=== PATIENT | female | born 1960 | race Caucasian/White ===

== ENCOUNTER 2017-07-10 19:57 | Emergency (ER) | payer BC ==
[2017-07-10 20:06] VITALS: BP 140/94
--- NOTE | 2017-07-10 20:14 | UC ---
Respiratory Complaint HPI - HPI Summary HPI Summary: Pt presents with dry cough for the last 3 days. She tells me that she gets bronchitis every year around this time, but this year she is worried because she is leaving for a cruise in a few days and does not want to be sick. She took robitussin, but this gave her diarrhea. Denies fever, chills, SOB, chest pain, abdominal pain, n/v/d/c. 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 [place] URETER STRETCHED- . BREAST REDUCTION - Family History Known Family History: Positive: Hypertension - Social History Occupation: Employed Full-time Lives: With Family Alcohol Use: Occasionally Alcohol Amount: 1-2 DRINKS PER WEEK Substance Use Type: None Smoking Status (MU): Never Smoked Tobacco Have You Smoked in the Last Year: No Review of Systems Constitutional: Negative Skin: Negative Eyes: Negative ENT: Negative Respiratory: Cough Cardiovascular: Negative Gastrointestinal: Negative Musculoskeletal: Negative Neurological: Negative Psychological: Negative All Other Systems Reviewed And Are Negative: Yes Physical Exam Triage Information Reviewed: Yes Appearance: Well-Appearing, No Pain Distress, Well-Nourished Vital Signs: Initial Vital Signs Temp 99.2 F 07/10/17 20:02 Pulse 97 07/10/17 20:02 Resp 16 07/10/17 20:02 BP 140/94 07/10/17 20:02 Pulse Ox 97 07/10/17 20:02 Vital Signs Reviewed: Yes Eyes: Positive: Conjunctiva Clear. Negative: Conjunctiva Inflamed, Discharge ENT: Positive: Hearing grossly normal, Pharynx normal, TMs normal, Uvula midline. Negative: Pharyngeal erythema, Nasal congestion, Nasal drainage, TM bulging, TM dull, TM red, Tonsillar swelling, Tonsillar exudate, Hoarse voice, Sinus tenderness Neck: Positive: Supple, Nontender, No Lymphadenopathy Respiratory: Positive: Chest non-tender, Lungs clear, Normal breath sounds, No respiratory distress, No accessory muscle use Cardiovascular: Positive: RRR, No Murmur, Pulses Normal Neurological: Positive: Alert Psychological: Positive: Age Appropriate Behavior Skin: Negative: rashes UC Diagnostic Evaluation - Laboratory O2 Sat by Pulse Oximetry: 97 Respiratory Course/Dx - Course Course Of Treatment: Bronchitis - Differential Dx/Diagnosis Provider Diagnoses: Bronchitis Discharge - Discharge Plan Condition: Stable Disposition: HOME Prescriptions: Azithromycin TAB* [Zithromax TAB (Z-SHANE) 250 mg #6 tabs] 2 tab PO .TODAY, THEN 1 DAILY #1 shane Benzonatate CAP* [Tessalon 100 MG CAP*] 100 mg PO TID PRN #21 cap PRN Reason: Cough Codeine Phosphate/Guaifenesin [Guaifen-Codeine 100-10 mg/5 ml] 5 ml PO BEDTIME PRN #30 ml MDD 5mL PRN Reason: Cough Patient Education Materials: Acute Bronchitis (ED) Referrals: Carlos Elise MD [Primary Care Provider] - Additional Instructions: If you develop a fever, shortness of breath, chest pain, new or worsening symptoms - please call your PCP or go to the ED. Your blood pressure was high at todays visit. Please see your primary provider within 4 weeks for recheck and re-evaluation.
== END 2017-07-10 20:30 | disposition home or self-care (01) ==
LOC: UCEAST 19:57
DX: J40 Bronchitis, not specified as acute or chronic (principal)
CPT/HCPCS: 99212; G0463

== ENCOUNTER 2018-06-15 05:45 | Day surgery (SDC) | payer BC ==
[~2018-06-15 05:45] MED LIST: Buffered Lidocaine 1% SYRIN* 1 ML/SYRINGE INTRADERM ONE
[2018-06-15] MEDS ORDERED: Lactated Ringers 1000 ML Bag* 1,000 ML IV SCH ×2 (06:00→09:00)
[2018-06-15] MEDS ORDERED: Dexamethasone IV* 4 MG/ML 1 ML (4 MG) IV SLOW PU ONE (06:00)
[2018-06-15] MEDS ORDERED: Famotidine IV* 10 MG/ML 2 ML (20 mg) IV ONE (06:00)
[2018-06-15] MEDS ORDERED: Dexamethasone IV* 4 MG/ML 1 ML (4 MG) ONE (06:49)
[2018-06-15] MEDS ORDERED: Famotidine IV* 10 MG/ML 2 ML (20 mg) ONE (06:49)
[2018-06-15] MEDS ORDERED: Buffered Lidocaine 1% SYRIN* 1 ML/SYRINGE INTRADERM ONE (06:50)
[2018-06-15] MEDS ORDERED: fentaNYL* 50 MCG/ML 2 ML VIAL (100 MCG VIAL) ONE (07:04)
[2018-06-15] MEDS ORDERED: Midazolam* 1 MG/ML 2 ML VIAL (2 MG) ONE (07:04)
[2018-06-15] MEDS ORDERED: Silver Nitrate/Potassium Nitr* 1 EA STICK ONE (07:08)
[2018-06-15 07:26] LABS: Hematocrit 39 % (35-47); Hemoglobin 12.8 g/dl (12.0-16.0); Mean Corpuscular HGB Conc 33 g/dl (31-36); Mean Corpuscular Hemoglobin 29 pg (27-31); Mean Corpuscular Volume 88 fL (80-97); Mean Platelet Volume 7.3 fL (7.4-10.4); Platelet Count 385 10^3/ul (150-450); Red Blood Count 4.37 10^6/ul (4.00-5.40); Red Cell Distribution Width 14 % (10.5-15)
[2018-06-15] MEDS ORDERED: Propofol* 10 MG/ML 20 ML BTL ONE (07:53)
[2018-06-15] MEDS ORDERED: Lidocaine 2% PF * 5 ML VIAL ONE (07:53)
[2018-06-15] MEDS ORDERED: Phenylephrine INJ* 10 MG/ML 1 ML VIAL (10 MG) ONE (07:53)
[2018-06-15] MEDS ORDERED: Ketorolac INJ* 30 MG/ML 1 ML VIAL ONE (07:54)
[2018-06-15] MEDS ORDERED: Ondansetron INJ* 2 MG/ML VIAL ONE (07:54)
[2018-06-15] MEDS ORDERED: fentaNYL* 50 MCG/ML 2 ML VIAL (100 MCG VIAL) IV PRN (08:24)
[2018-06-15] MEDS ORDERED: Naloxone* 0.4 MG/ML 1 ML VIAL IV PRN (08:24)
[2018-06-15] MEDS ORDERED: DiMENhydriNATE IV* 50 MG/ML VIAL IV PUSH PRN (08:24)
[2018-06-15] MEDS ORDERED: Ibuprofen TAB* 600 MG PO PRN (08:25)
[2018-06-15] MEDS ORDERED: oxyCODONE/Acetamin 5/325 MG* TAB PO PRN (08:25)
[2018-06-15 10:22] VITALS: BP 112/58
--- NOTE | 2018-06-15 10:36 | OP ---
CC: [facility]. OPERATIVE REPORT: DATE OF OPERATION: 06/15/18 DATE OF : 56 SURGEON: Kartik Payne MD ANESTHESIOLOGIST: Dr. Murdock. PRE-OP DIAGNOSES: Postmenopausal bleeding and thickened endometrium on ultrasound, portion of polyp benign on office biopsy. POST-OP DIAGNOSES: Postmenopausal bleeding and thickened endometrium on ultrasound, portion of polyp benign on office biopsy. PROCEDURE: Dilation hysteroscopy, MyoSure polypectomy, and curettage. ESTIMATED BLOOD LOSS: Minimal, less than 20 cc. FINDINGS: Small midline uterus, uterus sounds to 7.5, approximately 1.5 cm of polypoid appearing tis marilou at the anterior fundus of the uterus, both tubal ostia were visualized. Otherwise, atrophic-appe aring endometrium. COMPLICATIONS: None. COUNTS: Sponge, lap, and needle count were x2 and the patient was brought to recovery room awake and in stable condition. DESCRIPTION OF PROCEDURE: The patient was brought to the operating room. When general anesthesia wa s found to be adequate, the patient was prepped and draped in the usual sterile fashion in the dorsal lithotomy position. Time-out was performed. Exam under anesthesia was performed, the weighted spec ulum was placed in the vagina. The anterior lip of the cervix was grasped with a single-tooth tenacu lum and the cervix was gently and easily dilated with the graduated Mckeon dilators. The MyoSure was introduced with the above findings noted. The MyoSure LITE was used to remove the polyp in its entir ety. The MyoSure was removed. Curettage was performed. The endometrial curettings and polypoid mate rial were sent to pathology. The single-tooth tenaculum was removed from the cervix. Excellent hemos tasis was noted. All instruments were removed from the vagina. The patient tolerated the procedure well. Sponge count was correct x2 and the patient was brought to recovery room awake in stable condi tion. [id number]/[facility] #: [id number]
== END 2018-06-15 10:23 | disposition home or self-care (01) ==
LOC: OR 05:45
PROVIDERS: ATTEND Obstetrics & Gynecology
DX: N95.0 Postmenopausal bleeding (principal); N84.0 Polyp of corpus uteri; I08.2 Rheumatic disorders of both aortic and tricuspid valves; Z68.41 Body mass index [BMI] 40.0-44.9, adult; I42.9 Cardiomyopathy, unspecified; I44.7 Left bundle-branch block, unspecified; G47.33 Obstructive sleep apnea (adult) (pediatric); I10 Essential (primary) hypertension; M19.90 Unspecified osteoarthritis, unspecified site
CPT/HCPCS: 36415; 85027; 86850; 86900; 86901; 88305; A9270-GY; J1100; J1885; J2250; J2405; J2704; J3010

== ENCOUNTER 2018-11-07 06:36 | Day surgery (SDC) | payer BC ==
[~2018-11-07 06:36] MED LIST changes: +Acetaminophen TAB* 325 MG PO PRN
[2018-11-07] MEDS ORDERED: Midazolam* 1 MG/ML 2 ML VIAL (2 MG) ONE ×2 (07:44→08:05)
[2018-11-07] MEDS ORDERED: Neomycin/Polymy/Dex OPTH.SUSP* MAXITROL 0.1% 5 ML ONE (08:01)
[2018-11-07] MEDS ORDERED: Povidone Iodine 5% OPTH* 30 ML BTL ONE (08:01)
[2018-11-07] MEDS ORDERED: acetaZOLAMIDE TAB* 250 MG ONE (08:01)
[2018-11-07] MEDS ORDERED: Phenylephrine OPHTH SOL 2.5%* 2 ML ONE (08:01)
[2018-11-07] MEDS ORDERED: Lidocaine 2% EPI 1:200000 MPF*10-20 ML VIAL ONE (08:01)
[2018-11-07] MEDS ORDERED: Ketorolac 0.5% OPHTH (NF) 0.5 % 5 ML BTL ONE (08:01)
[2018-11-07] MEDS ORDERED: Cyclopentolate 1% OPTH.SOL* 2 ML BTL ONE (08:01)
[2018-11-07] MEDS ORDERED: Proparacaine 0.5% OPHTH.SOL* 15 ML BTL ONE (08:01)
[2018-11-07 08:46] VITALS: BP 134/63
--- NOTE | 2018-11-07 09:02 | OP ---
OPERATIVE NOTE: DATE OF OPERATION: 11/07/18 - [facility] DATE OF : 56 SURGEON: Sean Johnson M.D. PREOPERATIVE DIAGNOSIS: Cataract, left eye. POSTOPERATIVE DIAGNOSIS: Cataract, left eye. OPERATIVE PROCEDURE: Extracapsular cataract extraction with intraocular lens implant, left eye. PROCEDURE: The patient was brought to the operating room after being given 1/2 % Alcaine with epinephrine drops in the preoperative area. The eye was prepped and draped in the usual sterile fashion. Sterile drape and eyelid speculum were placed. Again, topical 1/2% Alcaine with epinephrine was given. A paracentesis incision was made at the 3 o'clock position with the No.75 blade. Clear cornea incision 2.2 x 2.2-mm was created at the 6 o'clock position starting at the anterior limbus using the 2.2-mm keratome. The anterior chamber was irrigated with 0.4 mL of 1% non-preservative intracameral lidocaine and filled with DisCoVisc. A capsulorrhexis was completed using the cystotome and the Utrata forceps. Hydrodissection was performed with balanced salt solution. The lens nucleus was removed with the Phacoemulsification handpiece without incident. Cortex was removed with the irrigation-aspiration handpiece. The capsular bag was re-inflated using DisCoVisc and an [id number] implant was inserted with the shooter. The irrigation-aspiration handpiece was used to remove all residual DisCoVisc. The eye was refilled with balanced salt solution and the wound checked and found to be watertight. Topical Maxitrol drops were given. [id number]/[facility] #: [id number] [facility]ITALLissette
== END 2018-11-07 08:37 | disposition home or self-care (01) ==
LOC: OREAST 06:36
PROVIDERS: ATTEND Specialist
DX: Z01.818 Encounter for other preprocedural examination (principal); H25.13 Age-related nuclear cataract, bilateral; H40.013 Open angle with borderline findings, low risk, bilateral; I10 Essential (primary) hypertension; G47.33 Obstructive sleep apnea (adult) (pediatric); R82.998 Other abnormal findings in urine; Z12.11 Encounter for screening for malignant neoplasm of colon
CPT/HCPCS: A9270-GY; J2250; V2632